=== PATIENT | female | born 1930 | race Caucasian/White ===

== ENCOUNTER 2021-09-27 14:20 | Outpatient (CLI) | payer MEDICARE, OTHER | END 2021-09-27 23:59 | disposition home health service (06) | LOC: WOU 14:20 | PROVIDERS: ATTEND Podiatrist Foot & Ankle Surgery | DX: E11.52 Type 2 diabetes mellitus with diabetic peripheral angiopathy with gangrene (principal); E11.621 Type 2 diabetes mellitus with foot ulcer; E11.42 Type 2 diabetes mellitus with diabetic polyneuropathy; E11.22 Type 2 diabetes mellitus with diabetic chronic kidney disease; I96 Gangrene, not elsewhere classified; L97.523 Non-pressure chronic ulcer of other part of left foot with necrosis of muscle; N18.6 End stage renal disease; Z99.2 Dependence on renal dialysis; Z79.84 Long term (current) use of oral hypoglycemic drugs; L89.626 Pressure-induced deep tissue damage of left heel; M79.672 Pain in left foot; Z79.82 Long term (current) use of aspirin | CPT/HCPCS: G0463 ==